=== PATIENT | male | born 1960 | race Caucasian/White ===

== ENCOUNTER 2024-03-19 22:33 | Emergency (ER) | payer OTHER ==
[~2024-03-19] VITALS: Ht 177.8 cm; Wt 124.6 kg
[2024-03-20] MEDS: HYDROcodone-ACET 10/325MG TAB PO ONE (01:01)
[2024-03-20] MEDS: KETOROLAC TROMETH 60MG/2ML VIAL IM ONE (01:01)
[2024-03-20 01:18] VITALS: BP 136/75; PULSE 78; RESP 16; TEMP 97.6; O2SAT 96
[2024-03-20] MEDS ORDERED: HYDR-4902 PO (01:33)
[2024-03-20] MEDS ORDERED: BACDST PO (01:33)
[2024-03-20] MEDS ORDERED: IBUP-1455 PO (01:33)
== END 2024-03-20 01:39 | disposition home or self-care (01) ==
LOC: ER 22:33
DX: N44.00 Torsion of testis, unspecified (principal); E66.01 Morbid (severe) obesity due to excess calories; Z68.39 Body mass index [BMI] 39.0-39.9, adult
CPT/HCPCS: 76870; 96372; 99285; J1885

== ENCOUNTER 2024-05-26 17:15 | Inpatient (IN) | payer OTHER ==
[~2024-05-26] VITALS: Ht 175.3 cm; Wt 113.7 kg
[~2024-05-26 17:15] MED LIST: BACDST PO; HYDR-4902 PO; IBUP-1455 PO
[2024-05-26 18:41] LABS: Basophils # (auto) 0.1 10 ^3/uL (0-0.2); Basophils % (auto) 1.5 % (0.0-2.0); Eosinophils # (auto) 0.2 10 ^3/uL (0-0.8); Eosinophils % (auto) 1.9 % (0.0-7.0); Hematocrit 45.3 % (41.0-53.0); Hemoglobin 15.5 g/dL (13.5-17.5); Lymphocytes # (auto) 1.7 10 ^3/uL (0.4-5.4); Lymphocytes % (auto) 20.3 % (10.0-50.0); Mean Corpuscular Hemoglobin 30.7 pg (28.0-32.0); Mean Corpuscular Hgb Conc. 34.1 g/dL (32.0-36.0); Mean Corpuscular Volume 89.9 fL (80.0-100.0); Monocytes # (auto) 0.7 10 ^3/uL (0-1.3); Neutrophils # (auto) 5.5 10 ^3/uL (1.6-8.6); Neutrophils % (auto) 67.3 % (37.0-80.0); Platelet Count (auto) 345 10^3/uL (140-450); Red Blood Cells 5.04 10^6/uL (4.5-5.90); Red Cell Distribution Width 14.3 % (11.8-14.3); White Blood Cell 8.2 10^3/uL (4.4-10.8)
[2024-05-26] MEDS: HYDROcodone-ACET 10/325MG TAB PO ONE (18:42)
--- NOTE | 2024-05-26 18:47 | DVH ---
ULTRASOUND OF SCROTUM AND CONTENTS. INDICATION: Bleeding, open wound.. COMPARISON: US TESTICULAR ULTRASOUND on DOS: 03/20/24 TECHNIQUE: Multiple real-time grayscale sonographic and color and duplex Doppler images of the scrotu m and its contents were obtained. FINDINGS: In the right scrotal area of the testicle there is a 4.4 x 2.4 x 3.1 cm complex heterogeneous fluid c ollection, possibly hematoma or abscess. The right testicle and right epididymis are not clearly delineated and may be obscured by abscess. The left testicle and left epididymis are within normal limits. The left testicle measures 3.8 x 2.1 x 2.0 cm and demonstrates normal blood flow. IMPRESSION: Complex heterogeneous fluid collection seen in the right scrotal area which measures up to 4.4 cm, po ssible hematoma or abscess.. The right testicle and right epididymis are not clearly delineated and may be obscured by complex flu id collection. The left testes is unremarkable.
[2024-05-26 19:04] LABS: Albumin 4.3 g/dL (3.2-4.8); Alkaline Phosphatase 112 U/L (46-116); Anion Gap 7 (5-15); Aspartate Aminotransferase < 8 U/L (13-40); BUN/Creatinine Ratio 10.5 (10.0-20.0); Blood Urea Nitrogen 12 mg/dL (9-23); Calcium 9.3 mg/dL (8.7-10.4); Carbon Dioxide 24 mmol/L (20-31); Chloride 102 mmol/L (98-107); Potassium 4.1 mmol/L (3.5-5.1); Sodium 133 mmol/L (136-145)
[2024-05-26 19:05] LABS: Bilirubin, Total 0.4 mg/dL (0.2-1.0); Total Protein 7.8 g/dL (5.7-8.2)
[2024-05-26 19:16] LABS: Alanine Aminotransferase < 9 U/L (7-40)
[2024-05-26 19:17] LABS: Glucose 473 mg/dL (74-106)
--- NOTE | 2024-05-26 19:21 | ED.PDOC ---
General HPI Comments Patient is a pleasant but morbidly obese 63-year-old male who I am familiar with due to prior visits who arrives today for continued complaints of right testicle swelling and pain. Patient was seen at this facility a while back and diagnosed with hydrocele of the right testicle. Patient states he followed up with his doctor in the evaluated him. Patient states the testicle started to improve and then approximately one week ago reversed and began swelling again. Patient states that today he had some abrasion on his that resulted in bleeding from the scrotum. Patient arrives wearing a diaper that is fluid and blood filled as well as an enlarged right testicle. No fever nausea or vomiting. Patient was mildly hypertensive on arrival. Chief Complaint: Testicle Pain Time Seen by MD: 17:33 Primary Care Provider: Dr. Mcnamara's Reviewed notes: Nurses Notes Allergies: Coded Allergies: NO KNOWN ALLERGIES (Unverified , 03/19/24) Home Meds Active Scripts Hydrocodone-Acetaminophen (Hydrocodone Bitartrate/AC 5-325 mg) 1 Tab Tab, 1 TAB PO Q6HP PRN, #15 TAB Prov:GUICHO COBURN PAC 03/20/24 Ibuprofen Micronized (Ibuprofen) 800 Mg Tab, 800 MG PO Q8HP PRN, #20 TAB Prov:GUICHO COBURN PAC 03/20/24 Sulfamethoxazole W/Trimethopri (Bactrim Ds Tablet) 1 Tab Tb, 1 TAB PO BID for 7 Days, #14 TAB Prov:GUICHO COBURN PAC 03/20/24 Information Source: Patient, Friend Mode of Arrival: Ambulatory Severity: Moderate Timing: Weeks Duration: Since onset Prehospital treatment: Treatment Onset: Spontaneous Symptoms: Other (Right testicle pain) History of: Other (Right hydrocele) Location male: R Scrotum Penile discharge: None Modifying factors: None associated signs and symptoms: Other (Scrotal tear.) Past Medical History PAST MEDICAL HISTORY: Denies Past Medical History (Other): Recent prolonged hydrocele event Surgical History: Denies all surgeries Family History Family History: Reviewed,noncontributory to illness, No family hx of Cancer, No family hx of DM, No family hx of Heart gamaliel, No family hx of HTN, No family hx ofKidney gamaliel, No family hx of Liver gamaliel, No family hx of Lung gamaliel, No family hx of Stroke Social History Smoker: Non-Smoker Alcohol: Denies ETOH Use Drugs: Denies Drug Use Lives In: Home Constitutional: denies: chills, diaphoresis, fatigue, fever, malaise, sweats, weakness, others EENTM: denies: blurred vision, double vision, ear bleeding, ear discharge, ear drainage, ear pain, ear ringing, eye pain, eye redness, hearing loss, mouth pain, mouth swelling, nasal discharge, nose bleeding, nose congestion, nose pain, photophobia, tearing, throat pain, throat swelling, voice changes, others Respiratory: denies: cough, hemoptysis, orthopnea, SOB at rest, shortness of breath, SOB with excertion, stridor, wheezing, others Cardiovascular: denies: chest pain, dizzy spells, diaphoresis, Dyspnea on exertion, edema, irregular heart beat, left arm pain, lightheadedness, palpitati ons, PND, syncope, others Gastrointestinal: denies: abdomen distended, abdominal pain, blood streaked bowels, constipated, diarrhea, dysphagia, difficulty swallowing, hematemesis, melena, nausea, poor appetite, poor fluid intake, rectal bleeding, rectal pain, vomiting, others Genitourinary: reports: testicle pain, testicle swelling, others (Scrotal trauma); denies: burning, dysuria, flank pain, frequency, hematuria, incontinence, penile discharge, penile sore, pain, urgency Neurological: denies: dizziness, fainting, headache, left sided numbness, left sided weakness, numbness, paresthesia, pre-existing deficit, right sided numbness, right sided weakness, seizure, speech problems, tingling, tremors, weakness, others Musculoskeletal: denies: back pain, gout, joint pain, joint swelling, muscle pain, muscle stiffness, neck pain, others Integumetry: denies: bruises, change in color, change in hair/nails, dryness, laceration, lesions, lumps, rash, wounds, others Allergic/Immunocompromised: denies: Difficulty Healing, Frequent Infections, Hives, Itching, others Hematologic/Lymphatic: denies: anemia, blood clots, easy bleeding, easy bruising, swollen glands, others Endocrine: denies: excessive hunger, excessive sweating, excessive thirst, excessive urination, flushing, intolerance to cold, intolerance to heat, unexplained weight gain, unexplained weight loss, others Psychiatric: denies: anxiety, bipolar disorder, depression, hopeless, panic disorder, schizophrenia, sleepless, suicidal, others Physical Exam General Appearance: Moderate Distress (Due to right-sided testicular pain and scrotal trauma.), Obese HEENT: Normal ENT Inspection, Pharynx Normal, TMs Normal Neck: Full Range of Motion, Non-Tender, Normal, Normal Inspection Respiratory: Chest Non-Tender, Lungs Clear, No Accessory Muscle Use, No Respiratory Distress, Normal Breath Sounds Cardiovascular: No Edema, No JVD, No Murmur, No Gallop, Normal Peripheral Pulses, Regular Rate/Rhythm Breast Exam: Deferred Gastrointestinal: No Organomegaly, Non Tender, No Pulsatile Mass, Normal Bowel Sounds, Soft Genitalia: Other (Patient has an exquisitely tender enlarged right testicle. Patient reveals a tear to the anterior aspect of the scrotum that is expressing serosanguineous fluid. Cremaster reflexes present.) Pelvic: Deferred Rectal: Deferred Extremities: No calf tenderness, Normal capillary refill, Normal inspection, Normal range of motion, Non-tender, No pedal edema Neurologic: Alert, electric power superintendent II-XII nml as Tested, No Motor Deficits, Normal Affect, Normal Mood, No Sensory Deficits Cerebellar Function: Normal Reflexes: Normal Skin: Dry, Normal Color, Warm Lymphatic: No Adenopathy Was a procedure done? Was a procedure done?: No Differential Diagnosis Kidney stone (Female): N/A Penile/Scrotal: Other (Testicular hydrocele, epididymitis, testicular torsion, scrotal trauma, scrotal mass) X-Ray, Labs, Meds, VS Vital Signs Date Time Temp Pulse Resp B/P (MAP) Pulse Ox O2 Delivery O2 Flow Rate FiO2 05/26/24 20:23 98.5 74 11 117/53 (74) 96 98.5 05/26/24 20:23 74 11 96 Room Air* 0 21 05/26/24 19:43 16 96 Room Air* 0 21 05/26/24 19:38 97.9 89 16 156/91 (112) 95 97.9 05/26/24 17:36 98.7 90 16 151/90 (110) 98 Lab Test 05/26/24 20:15 05/26/24 18:29 Range/Units POC Glucose 525 *H 70-106 mg/dl White Blood Count 8.2 4.4-10.8 10^3/uL Red Blood Count 5.04 4.5-5.90 10^6/uL Hemoglobin 15.5 13.5-17.5 g/dL Hematocrit 45.3 41.0-53.0 % Mean Corpuscular Volume 89.9 80.0-100.0 fL Mean Corpuscular Hemoglobin 30.7 28.0-32.0 pg Mean Corpuscular Hemoglobin Concent 34.1 32.0-36.0 g/dL Red Cell Distribution Width 14.3 11.8-14.3 % Platelet Count 345 140-450 10^3/uL Mean Platelet Volume 8.7 6.9-10.8 fL Neutrophils (%) (Auto) 67.3 37.0-80.0 % Lymphocytes (%) (Auto) 20.3 10.0-50.0 % Monocytes (%) (Auto) 9.0 0.0-12.0 % Eosinophils (%) (Auto) 1.9 0.0-7.0 % Basophils (%) (Auto) 1.5 0.0-2.0 % Neutrophils # (Auto) 5.5 1.6-8.6 10 ^3/uL Lymphocytes # (Auto) 1.7 0.4-5.4 10 ^3/uL Monocytes # (Auto) 0.7 0-1.3 10 ^3/uL Eosinophils # (Auto) 0.2 0-0.8 10 ^3/uL Basophils # (Auto) 0.1 0-0.2 10 ^3/uL Nucleated Red Blood Cells 0.0 % Sodium Level 133 L 136-145 mmol/L Potassium Level 4.1 3.5-5.1 mmol/L Chloride Level 102 98-107 mmol/L Carbon Dioxide Level 24 20-31 mmol/L Anion Gap 7 5-15 Blood Urea Nitrogen 12 9-23 mg/dL Creatinine 1.14 0.700-1.30 mg/dL Glomerular Filtration Rate Calc 72 >90 mL/min BUN/Creatinine Ratio 10.5 10.0-20.0 Serum Glucose 473 *H 74-106 mg/dL Lactic Acid Level 1.4 0.4-2.0 mmol/L Calcium Level 9.3 8.7-10.4 mg/dL Total Bilirubin 0.4 0.2-1.0 mg/dL Aspartate Amino Transferase (AST) < 8 L 13-40 U/L Alanine Aminotransferase (ALT) < 9 7-40 U/L Alkaline Phosphatase 112 46-116 U/L Total Protein 7.8 5.7-8.2 g/dL Albumin 4.3 3.2-4.8 g/dL Current Medications Medications (Trade) Dose Ordered Sig/Fabian Route Start Time Stop Time Status Last Admin Acetaminophen/ Hydrocodone Bitart (Homer 10/325MG Tab) 1 tab ONCE ONCE PO 05/26/24 18:00 05/26/24 18:01 DC 05/26/24 18:42 Ceftriaxone Sodium 50 ml @ 100 mls/hr ONCE ONCE IV 05/26/24 19:30 05/26/24 19:59 DC 05/26/24 20:01 Sodium Chloride 1,000 ml @ 1,000 mls/hr Q1H ONCE IV 05/26/24 19:30 05/26/24 20:29 DC 05/26/24 20:01 Insulin Human Lispro (HumaLOG) 10 units ONCE ONCE SC 05/26/24 19:30 05/26/24 19:31 DC 05/26/24 20:16 X-Ray, Labs, Meds, VS Comment Laboratories studies were only remarkable for an elevated glucose. Was pending at time of this note. Ultrasound of scrotum revealed a large hydrocele of the right testicle as well as a abscess or mass noted. To the extended time of this hydrocele as well as an abscess or mass formation, patient will be admitted for surgical consultation to assess possible intervention. Patient's diabetes will be managed well with the facility. Prophylactic antibiotics have been started. Patient was a [facility] patient and therefore, I discussed patient presentation and imaging and laboratory results with Dr. Urbano. She agreed to accept the patient as an admit. Time of 1ST Reevaluation: 19:20 Reevaluation 1ST: Improved Consultation: PCP Patient Education/Counseling: Diagnosis, Treatment Family Education/Counseling: Diagnosis, Treatment Departure 1 Departure Time of Disposition: 19:20 Impression: Primary Impression: Hydrocele of testis Additional Impressions: Scrotal abscess Hyperglycemia due to diabetes mellitus Disposition: ADMITTED INPATIENT Condition: Stable Discharged With: Self, Friend Critical Care Note Critical Care Time?: No Stability Stability form required: No Heart Score Heart Score: Heart Score Response (Comments) Value History N/A 0 EKG N/A 0 Age N/A 0 Risk Factors N/A 0 Troponin N/A 0 Total 0 GUICHO COBURN PAC May 26, 2024 19:21
[2024-05-26 19:43] VITALS: RESP 16; O2SAT 96
[2024-05-26] MEDS: cefTRIAXone 1GM/50ML D5W 50 ML IV ONE (20:01)
[2024-05-26] MEDS: SODIUM CHLORIDE 0.9% 1,000 ML IV ONE ×2 (20:01→22:51)
[2024-05-26] MEDS: INSULIN LISPRO (HUMAN) 100 UNITS/ML ML SC ONE (20:16)
[2024-05-26 20:23] VITALS: PULSE 74; RESP 11; O2SAT 96
[2024-05-26] MEDS ORDERED: MORPHINE SULFATE INJ 2 MG/ml SYRG IV PRN (21:45)
[2024-05-26] MEDS ORDERED: NITROGLYCERIN 0.4 MG SL TAB SL PRN (21:45)
[2024-05-26] MEDS ORDERED: DEXTROSE (50%) 50ML SYRG IV PRN (21:45)
[2024-05-26] MEDS ORDERED: ONDANSETRON HCL 4 MG/2 ML VIAL IV PRN (22:00)
[2024-05-26 22:31] LABS: Basophils # (auto) 0.1 10 ^3/uL (0-0.2); Basophils % (auto) 0.7 % (0.0-2.0); Eosinophils # (auto) 0.2 10 ^3/uL (0-0.8); Eosinophils % (auto) 2.2 % (0.0-7.0); Hematocrit 41.6 % (41.0-53.0); Lymphocytes # (auto) 1.6 10 ^3/uL (0.4-5.4); Lymphocytes % (auto) 19.6 % (10.0-50.0); Mean Corpuscular Hemoglobin 30.6 pg (28.0-32.0); Mean Corpuscular Hgb Conc. 33.6 g/dL (32.0-36.0); Mean Corpuscular Volume 90.8 fL (80.0-100.0); Monocytes # (auto) 0.9 10 ^3/uL (0-1.3); Monocytes % (auto) 11.6 % (0.0-12.0); Neutrophils # (auto) 5.3 10 ^3/uL (1.6-8.6); Neutrophils % (auto) 65.9 % (37.0-80.0); Platelet Count (auto) 295 10^3/uL (140-450); Red Blood Cells 4.58 10^6/uL (4.5-5.90); Red Cell Distribution Width 13.9 % (11.8-14.3); White Blood Cell 8.1 10^3/uL (4.4-10.8)
[2024-05-26 22:45] LABS: INR 1.02 (0.9-1.15); Prothrombin Time 10.8 sec (9.3-11.8)
[2024-05-26] MEDS: ACCU-CHEK COMFORT CURVE STRIP VI SCH (22:45)
[2024-05-26] MEDS: InsuLIN REG 1unit/0.01ml Soln (100units/ml) SC SCH (22:49)
[2024-05-27] VITALS (13 sets, daily range): BP systolic 130–146; BP diastolic 70–87; PULSE 65–89; RESP 17–20; TEMP 98–98.9; O2SAT 92–98
[2024-05-27 06:19] LABS: Alkaline Phosphatase 75 U/L (46-116); Anion Gap 7 (5-15); Blood Urea Nitrogen 10 mg/dL (9-23); Calcium 8.5 mg/dL (8.7-10.4); Carbon Dioxide 23 mmol/L (20-31); Chloride 109 mmol/L (98-107); Potassium 3.6 mmol/L (3.5-5.1); Sodium 139 mmol/L (136-145)
--- NOTE | 2024-05-27 06:19 | DVHHP2 ---
Admitting Diagnosis: scrotal hematoma vs abscess History of Present Illness HPI 63 y.o. male with morbid obesity, diabetes and h/o right testicle hydrocele (03/20/2024) arrived to the ED complaining of right testicular swelling and pain. Patient informed that the previous episode of hydrocele initially improved but a week ago the right testicle started swelling again. Patient states that today he had some scrotal abrasion with bleeding from the scrotum. Patient arrived with a diaper filled with serosanguineous fluid. Home Meds Active Scripts Hydrocodone-Acetaminophen (Hydrocodone Bitartrate/AC 5-325 mg) 1 Tab Tab, 1 TAB PO Q6HP PRN, #15 TAB Prov:GUICHO COBURN PAC 03/20/24 Ibuprofen Micronized (Ibuprofen) 800 Mg Tab, 800 MG PO Q8HP PRN, #20 TAB Prov:GUICHO COBURN PAC 03/20/24 Sulfamethoxazole W/Trimethopri (Bactrim Ds Tablet) 1 Tab Tb, 1 TAB PO BID for 7 Days, #14 TAB Prov:GUICHO COBURN PAC 03/20/24 Past Medical History Cardiac: HTN Renal/: Other (right hydrocele) Endocrine: NIDDM Patient Family History: Patient reports no known family medical history. Review of Systems Genitourinary: Pain, Other (scrotal swelling and pain) H&P Exam Vital Signs Vital Signs Date Time Temp Pulse Resp B/P (MAP) Pulse Ox O2 Delivery O2 Flow Rate FiO2 05/27/24 05:19 98.0 69 19 130/85 (100) 98 98.0 05/27/24 04:32 Room Air* 0 21 General Appeara: Obese Head Exam: Normal inspection, Active bleeding Neck Exam: Normal inspection Eye Exam: bilateral eye PERRL, bilateral eye EOMI Pulmonary/Respiratory: Lungs clear Cardiovascular/Chest: Regular rate Abdominal Exam: Normal bowel sounds Male Genital Exam: Scrotum tenderness -L, Testicular tenderness - R Neuro/Mental St: Alert, Oriented Labs/Xrays Labs Test 05/27/24 04:45 05/26/24 22:45 05/26/24 22:04 05/26/24 18:29 Range/Units POC Glucose 354 H 70-106 mg/dl White Blood Count 8.1 4.4-10.8 10^3/uL Red Blood Count 4.58 4.5-5.90 10^6/uL Hemoglobin 14.0 13.5-17.5 g/dL Hematocrit 41.6 41.0-53.0 % Mean Corpuscular Volume 90.8 80.0-100.0 fL Mean Corpuscular Hemoglobin 30.6 28.0-32.0 pg Mean Corpuscular Hemoglobin Concent 33.6 32.0-36.0 g/dL Red Cell Distribution Width 13.9 11.8-14.3 % Platelet Count 295 140-450 10^3/uL Mean Platelet Volume 8.5 6.9-10.8 fL Neutrophils (%) (Auto) 65.9 37.0-80.0 % Lymphocytes (%) (Auto) 19.6 10.0-50.0 % Monocytes (%) (Auto) 11.6 0.0-12.0 % Eosinophils (%) (Auto) 2.2 0.0-7.0 % Basophils (%) (Auto) 0.7 0.0-2.0 % Neutrophils # (Auto) 5.3 1.6-8.6 10 ^3/uL Lymphocytes # (Auto) 1.6 0.4-5.4 10 ^3/uL Monocytes # (Auto) 0.9 0-1.3 10 ^3/uL Eosinophils # (Auto) 0.2 0-0.8 10 ^3/uL Basophils # (Auto) 0.1 0-0.2 10 ^3/uL Nucleated Red Blood Cells 0.0 % Prothrombin Time 10.8 9.3-11.8 sec Prothrombin Time INR 1.02 0.9-1.15 Lactic Acid Level 1.4 0.4-2.0 mmol/L Assessment/Plan Problem List: (1) Scrotal hematoma (2) Scrotal abscess (3) Hyperglycemia due to diabetes mellitus Plan Rocephin, Insulin, Urology consult Plan discussed with: Patient JESSICA GARCIA MD May 27, 2024 06:19
[2024-05-27 06:20] LABS: Albumin 3.4 g/dL (3.2-4.8)
[2024-05-27 06:21] LABS: Aspartate Aminotransferase < 8 U/L (13-40); Bilirubin, Total 0.3 mg/dL (0.2-1.0); Total Protein 6.3 g/dL (5.7-8.2)
[2024-05-27] MEDS: InsuLIN REG 1unit/0.01ml Soln (100units/ml) SC SCH (06:22)
[2024-05-27 06:33] LABS: Alanine Aminotransferase < 9 U/L (7-40); Glucose 157 mg/dL (74-106)
[2024-05-27] MEDS ORDERED: CEPH250C PO (09:33)
[2024-05-27] MEDS: cefTRIAXone 1GM/50ML D5W 50 ML IV SCH (10:18)
[2024-05-27] MEDS: HYDROcodone-ACET 10/325MG TAB PO PRN (10:39)
--- NOTE | 2024-05-27 12:20 | DVHINCON2 ---
Date of service: May 26, 2024 Referring Physician Hospitalist Reason for Consultation Scrotal Hematoma History of Present Illness 63 y.o. male with morbid obesity, diabetes and h/o right testicle hydrocele (03/20/2024) arrived to the ED complaining of right testicular swelling and pain. Patient informed that the previous episode of hydrocele initially improved but a week ago the right testicle started swelling again. Patient states that today he had some scrotal abrasion with bleeding from the scrotum. Patient arrived with a diaper filled with serosanguineous fluid. Family History: Patient reports no known family medical history. Allergies: Coded Allergies: NO KNOWN ALLERGIES (Unverified , 03/19/24) Home Meds Active Scripts Cephalexin (KEFLEX CAPSULE) 250 Mg Cp, 500 MG PO TID for 10 Days, #30 CAP Prov:SURI STARKEY MD 05/27/24 Hydrocodone-Acetaminophen (Hydrocodone Bitartrate/AC 5-325 mg) 1 Tab Tab, 1 TAB PO Q6HP PRN, #15 TAB Prov:GUICHO OCBURN PAC 03/20/24 Ibuprofen Micronized (Ibuprofen) 800 Mg Tab, 800 MG PO Q8HP PRN, #20 TAB Prov:GUICHO COBURN PAC 03/20/24 Sulfamethoxazole W/Trimethopri (Bactrim Ds Tablet) 1 Tab Tb, 1 TAB PO BID for 7 Days, #14 TAB Prov:GUICHO COBURN PAC 03/20/24 Current Medications Current Medications Medications (Trade) Dose Ordered Sig/Fabian Route PRN Reason Start Time Stop Time Status Last Admin Nitroglycerin (Ntrostat Sublingual) 0.4 mg Q5MINP PRN SL FOR CHEST PAIN 05/26/24 21:45 Morphine Sulfate 2 mg Q30M PRN IV FOR CHEST PAIN 05/26/24 21:45 Ceftriaxone Sodium 50 ml @ 100 mls/hr DAILY IV 05/27/24 10:00 05/27/24 10:18 Diagnostic Test (Pha) (Accu-Chek Comfort Curve T) 1 strip ACHS 05/26/24 22:00 05/27/24 10:42 Insulin Human Regular (InsuLIN R) HS SC 05/26/24 22:00 05/26/24 22:49 Insulin Human Regular (InsuLIN R) AC SC 05/27/24 07:00 05/27/24 06:22 Dextrose 50 ml UD PRN IV Blood Sugar LESS THAN 60 05/26/24 21:45 Ondansetron HCl (Zofran) 4 mg Q6HPRN PRN IV NAUSEA / VOMITING 05/26/24 22:00 Morphine Sulfate 1 mg Q4HPRN PRN IV SEVERE PAIN (7-10 PAIN SCALE) 05/26/24 22:00 Acetaminophen/ Hydrocodone Bitart (Bisbee 10/325MG Tab) 1 tab Q6HP PRN PO MODERATE PAIN (4-6 PAIN SCALE) 05/27/24 10:30 05/27/24 10:39 Vital Signs Vital Signs Date Time Temp Pulse Resp B/P (MAP) Pulse Ox O2 Delivery O2 Flow Rate FiO2 05/27/24 08:33 98.1 67 19 142/76 (98) 95 98.1 05/27/24 08:00 Room Air* 0 21 Physical Exam General Appeara: Obese Head Exam: Normal inspection, Active bleeding Neck Exam: Normal inspection Eye Exam: bilateral eye PERRL, bilateral eye EOMI Pulmonary/Respiratory: Lungs clear Cardiovascular/Chest: Regular rate Abdominal Exam: Normal bowel sounds Male Genital Exam: Scrotum tenderness -L, Testicular tenderness - R Neuro/Mental St: Alert, Oriented Labs/Diagnostic Data Labs Test 05/27/24 10:41 05/27/24 10:11 05/27/24 04:45 05/26/24 22:04 Range/Units POC Glucose 172 H 70-106 mg/dl Sodium Level 139 # 136-145 mmol/L Potassium Level 3.6 3.5-5.1 mmol/L Chloride Level 109 H 98-107 mmol/L Carbon Dioxide Level 23 20-31 mmol/L Anion Gap 7 5-15 Blood Urea Nitrogen 10 9-23 mg/dL Creatinine 0.83 0.700-1.30 mg/dL Glomerular Filtration Rate Calc 98 >90 mL/min BUN/Creatinine Ratio 12.0 10.0-20.0 Serum Glucose 157 #H 74-106 mg/dL Calcium Level 8.5 L 8.7-10.4 mg/dL Total Bilirubin 0.3 0.2-1.0 mg/dL Aspartate Amino Transferase (AST) < 8 L 13-40 U/L Alanine Aminotransferase (ALT) < 9 7-40 U/L Alkaline Phosphatase 75 46-116 U/L Total Protein 6.3 5.7-8.2 g/dL Albumin 3.4 3.2-4.8 g/dL White Blood Count 8.1 4.4-10.8 10^3/uL Red Blood Count 4.58 4.5-5.90 10^6/uL Hemoglobin 14.0 13.5-17.5 g/dL Hematocrit 41.6 41.0-53.0 % Mean Corpuscular Volume 90.8 80.0-100.0 fL Mean Corpuscular Hemoglobin 30.6 28.0-32.0 pg Mean Corpuscular Hemoglobin Concent 33.6 32.0-36.0 g/dL Red Cell Distribution Width 13.9 11.8-14.3 % Platelet Count 295 140-450 10^3/uL Mean Platelet Volume 8.5 6.9-10.8 fL Neutrophils (%) (Auto) 65.9 37.0-80.0 % Lymphocytes (%) (Auto) 19.6 10.0-50.0 % Monocytes (%) (Auto) 11.6 0.0-12.0 % Eosinophils (%) (Auto) 2.2 0.0-7.0 % Basophils (%) (Auto) 0.7 0.0-2.0 % Neutrophils # (Auto) 5.3 1.6-8.6 10 ^3/uL Lymphocytes # (Auto) 1.6 0.4-5.4 10 ^3/uL Monocytes # (Auto) 0.9 0-1.3 10 ^3/uL Eosinophils # (Auto) 0.2 0-0.8 10 ^3/uL Basophils # (Auto) 0.1 0-0.2 10 ^3/uL Nucleated Red Blood Cells 0.0 % Prothrombin Time 10.8 9.3-11.8 sec Prothrombin Time INR 1.02 0.9-1.15 Test 05/26/24 18:29 Range/Units Lactic Acid Level 1.4 0.4-2.0 mmol/L ULTRASOUND OF SCROTUM AND CONTENTS. INDICATION: Bleeding, open wound.. COMPARISON: US TESTICULAR ULTRASOUND on DOS: 03/20/24 TECHNIQUE: Multiple real-time grayscale sonographic and color and duplex Doppler images of the scrotum and its contents were obtained. FINDINGS: In the right scrotal area of the testicle there is a 4.4 x 2.4 x 3.1 cm complex heterogeneous fluid collection, possibly hematoma or abscess. The right testicle and right epididymis are not clearly delineated and may be obscured by abscess. The left testicle and left epididymis are within normal limits. The left testicle measures 3.8 x 2.1 x 2.0 cm and demonstrates normal blood flow. IMPRESSION: Complex heterogeneous fluid collection seen in the right scrotal area which measures up to 4.4 cm, possible hematoma or abscess.. The right testicle and right epididymis are not clearly delineated and may be obscured by complex fluid collection. The left testes is unremarkable. Assessment Scrotal Abscess Plan/Recommendation For I&D SINDI. Plan discussed with: Patient WENDY SWEENEY MD May 27, 2024 12:20
--- NOTE | 2024-05-27 13:24 | DVHOP2 ---
Operative Report - 2 Report Details Date: 05/27/24 Preop Diagnosis: Infected Scrotal Hematoma/Abscess Postop Diagnosis: Infected Scrotal Hematoma/Abscess Surgeon: Wendy Sweeney Anesthesiologist: KEIKO Anesthesia: General Consent: The patient was informed of the risks and benefits of the procedure. These include but are not limited to complications of anesthesia, postoperative infection, incomplete relief of symptoms, recurrence of symptoms, damage to blood vessels, nerves and tendons, deep venous thrombosis, pulmonary embolism and possible need for repeat surgery in the future. Name of Procedure Performed Incision and Drainage Procedure Details Procedure Details: see Op report Condition Good Disposition Acute Care Facility WENDY SWEENEY MD May 27, 2024 13:24
[2024-05-27] MEDS ORDERED: GLYCOPYRROLATE 0.2 MG/ML 1ML VIAL ONE (13:36)
[2024-05-27] MEDS ORDERED: PROPOFOL 10 MG/ML 20 ML IV ONE (13:36)
[2024-05-27] MEDS ORDERED: DexAMETHasone SOD PHOS 10MG/1ML VIAL INJ ONE (13:38)
[2024-05-27] MEDS ORDERED: LIDOCAINE 2% (LOCAL ANESTH.) PF 5ml SDV ONE (13:38)
[2024-05-27] MEDS ORDERED: ONDANSETRON HCL 4 MG/2 ML VIAL ONE (13:38)
[2024-05-27] MEDS ORDERED: KETAMINE 50mg/ML 1ml syringe ONE (13:38)
[2024-05-27] MEDS ORDERED: KETOROLAC TROMETH 30 MG/ML 1ML VIAL ONE (13:38)
[2024-05-27] MEDS ORDERED: fentaNYL CITRATE 100 MCG/2 ML VL ONE (13:39)
[2024-05-27] MEDS ORDERED: ePHEDrine SULFATE 50 MG/ML AMP IV PRN (14:30)
[2024-05-27] MEDS ORDERED: NALOXONE HCL 0.4 MG/ML VIAL IV PRN (14:30)
[2024-05-27] MEDS ORDERED: HYDROmorphone HCL 2 MG/ML VL/or syr IV PRN (14:30)
[2024-05-27] MEDS ORDERED: fentaNYL CITRATE 100 MCG/2 ML VL IV PRN (14:30)
[2024-05-27] MEDS ORDERED: hydrALAZINE HCL 20 MG/ML VL IV PRN (14:30)
[2024-05-27] MEDS ORDERED: FLUMAZENIL 0.1 MG/ML INJ 10ML MDV IV PRN (14:30)
[2024-05-27] MEDS ORDERED: ONDANSETRON HCL 4 MG/2 ML VIAL IV PRN (14:30)
[2024-05-28] VITALS (7 sets, daily range): BP systolic 111–146; BP diastolic 65–81; PULSE 68–79; RESP 16–20; TEMP 97–98.2; O2SAT 92–96
[2024-05-28 07:03] LABS: Basophils # (auto) 0 10 ^3/uL (0-0.2); Basophils % (auto) 0.2 % (0.0-2.0); Eosinophils # (auto) 0 10 ^3/uL (0-0.8); Hematocrit 42.4 % (41.0-53.0); Hemoglobin 14.3 g/dL (13.5-17.5); Lymphocytes # (auto) 1.3 10 ^3/uL (0.4-5.4); Lymphocytes % (auto) 11.9 % (10.0-50.0); Mean Corpuscular Hemoglobin 30.5 pg (28.0-32.0); Mean Corpuscular Hgb Conc. 33.8 g/dL (32.0-36.0); Mean Corpuscular Volume 90.2 fL (80.0-100.0); Monocytes # (auto) 0.8 10 ^3/uL (0-1.3); Monocytes % (auto) 7.1 % (0.0-12.0); Neutrophils # (auto) 9.1 10 ^3/uL (1.6-8.6); Neutrophils % (auto) 80.8 % (37.0-80.0); Platelet Count (auto) 354 10^3/uL (140-450); Red Blood Cells 4.69 10^6/uL (4.5-5.90); Red Cell Distribution Width 14.2 % (11.8-14.3); White Blood Cell 11.3 10^3/uL (4.4-10.8)
[2024-05-28 07:09] LABS: Calcium 8.9 mg/dL (8.7-10.4); Chloride 107 mmol/L (98-107); Potassium 4.5 mmol/L (3.5-5.1); Sodium 136 mmol/L (136-145)
[2024-05-28 07:10] LABS: Anion Gap 9 (5-15); Carbon Dioxide 20 mmol/L (20-31)
[2024-05-28 07:15] LABS: BUN/Creatinine Ratio 14.1 (10.0-20.0); Blood Urea Nitrogen 12 mg/dL (9-23); Glucose 241 mg/dL (74-106)
--- NOTE | 2024-05-28 08:07 | DVHDS2 ---
New Physician D'charge PN Admitting Diagnosis Admitting Diagnosis scrotal swelling/pain Discharge Diagnosis Infected Scrotal Abscess s/p I&D with removal of contents/scrotum Operations or Procedures I&D scrotal abscess Reason(s) For Hospitalization Surgery Hospital Course 63 M comes to ER for swelling of R testicle and pain. His U/S revealed testicular abscess and he was admitted and seen by urology. He was taken immediated to the OR for incision and drainage if scrotal/testicular abscess. He was maintained in IV Abx here in the hospital and has been cleared by urology this AM for dc home. He will follow up outpt with urology and PO Abx have been sent to his pharmacy on file. [facility] to arrange for all outpt follow up. Treatment Plan Discharge Condition of Discharge Good Disposition Home Discharge Instructions Diet: Cardiac 2g Na,low cholest Activity: No Restrictions, As Tolerated Activity comment: elevate and apply ice to scrotum Medications: see med sheet Follow Up Care Follow Up/Referral: pcp urology Discharge Statement: "Patient was advised to return to the ER or call 911 if any headaches, dizziness, shortness of breath, chest pain, abdominal pain, bleeding, fevers, or worsening of medical condition. Patient was counseled about treatment plan, medications, possible side effects, patientverbalized understanding. All questions were answered to the best of my ability. This discharge took greater then 30 minutes in planning, reviewing documentation, counseling the patient, and discussing with other team members." SURI STARKEY MD May 28, 2024 08:07
[2024-05-28 09:25] LABS: Hepatitis B Surface Antibody Negative (Negative)
[2024-05-28 09:36] LABS: Hepatitis B Surface Antigen Negative (Negative)
[2024-05-28 09:58] LABS: Hepatitis C Antibody Negative (Negative)
[2024-05-28] MEDS: MORPHINE SULFATE INJ 2 MG/ml SYRG IV PRN (12:20)
--- NOTE | 2024-05-28 15:33 | DVHPN2 ---
Progress Note - Dictate Date Seen: May 28, 2024 Medical Necessity Reason Pt with a Central, PICC or Fol: Yes The following are medically ne: Payton Catheter Medical Necessity Reason open wound to scrotum Subjective doing well vital signs Vital Sign Date Time Temp Pulse Resp B/P (MAP) Pulse Ox O2 Delivery O2 Flow Rate FiO2 05/28/24 13:00 98.0 68 18 146/81 (102) 92 98.0 05/28/24 08:30 Room Air* 0 21 Total Intake and Output 05/27/24 05/27/24 05/28/24 15:00 23:00 07:00 Intake Total 50 ml 0 ml Balance 50 ml 0 ml medications Current Medications Medications Dose Ordered Sig/Fabian Route Start Time Stop Time Status Last Admin Dose Admin Nitroglycerin 0.4 mg Q5MINP PRN SL 05/26/24 21:45 Morphine Sulfate 2 mg Q30M PRN IV 05/26/24 21:45 Ceftriaxone Sodium 50 ml @ 100 mls/hr DAILY IV 05/27/24 10:00 05/28/24 09:22 100 MLS/HR Diagnostic Test (Pha) 1 strip ACHS 05/26/24 22:00 05/28/24 11:44 1 STRIP Insulin Human Regular HS SC 05/26/24 22:00 05/27/24 21:27 10 UNITS Insulin Human Regular AC SC 05/27/24 07:00 05/28/24 12:04 6 UNITS Dextrose 50 ml UD PRN IV 05/26/24 21:45 Ondansetron HCl 4 mg Q6HPRN PRN IV 05/26/24 22:00 Morphine Sulfate 1 mg Q4HPRN PRN IV 05/26/24 22:00 05/28/24 12:20 1 MG Acetaminophen/ Hydrocodone Bitart 1 tab Q6HP PRN PO 05/27/24 10:30 05/27/24 14:53 1 TAB objective scrotal dressing packed serosanguinous output laboratory and microbiology Laboratory Tests 05/28/24 05:37 Test 05/28/24 05:37 Range/Units Serum Glucose 241 H 74-106 mg/dL Assessment/Plan daily wet to dry dressing changes f/u 1 week for wound check Problems(with codes): (1) Scrotal abscess (2) Scrotal hematoma (3) Status post orchiectomy Prognosis good Plan discussed with: Patient, Other Total Time (mins): 22 SAEED WASSERMAN NP May 28, 2024 15:32
[2024-05-28] MEDS: oxyCODONE HCL 5MG TAB PO ONE (22:32)
[2024-05-28 23:31] LABS: Urine Bacteria None Seen /hpf (None Seen)
[2024-05-28 23:54] LABS: Urine Blood 2+ /uL (Negative); Urine Clarity Clear (Clear); Urine Color Light-Yellow (Yellow); Urine Protein, UAD 3+ (Negative); Urine Specific Gravity 1.035 (1.001-1.035); Urine Urobilinogen Normal (Negative); Urine WBC 10 /hpf (0 - 3); Urine pH 6.5 (5.0-9.0)
[2024-05-29 01:00] VITALS: BP 139/79; PULSE 68; RESP 18; TEMP 98.4; O2SAT 95
[2024-05-29 05:00] VITALS: BP 139/80; PULSE 67; RESP 18; TEMP 98.2; O2SAT 93
[2024-05-29 06:02] LABS: Basophils # (auto) 0 10 ^3/uL (0-0.2); Basophils % (auto) 0.5 % (0.0-2.0); Eosinophils # (auto) 0.1 10 ^3/uL (0-0.8); Eosinophils % (auto) 1.4 % (0.0-7.0); Hemoglobin 14.4 g/dL (13.5-17.5); Lymphocytes # (auto) 2.1 10 ^3/uL (0.4-5.4); Lymphocytes % (auto) 23.8 % (10.0-50.0); Mean Corpuscular Hemoglobin 30.5 pg (28.0-32.0); Mean Corpuscular Hgb Conc. 34.3 g/dL (32.0-36.0); Mean Corpuscular Volume 88.8 fL (80.0-100.0); Monocytes # (auto) 1.1 10 ^3/uL (0-1.3); Neutrophils # (auto) 5.5 10 ^3/uL (1.6-8.6); Neutrophils % (auto) 62.3 % (37.0-80.0); Nucleated Red Blood Cells % 0.1 %; Platelet Count (auto) 336 10^3/uL (140-450); Red Blood Cells 4.73 10^6/uL (4.5-5.90); Red Cell Distribution Width 13.8 % (11.8-14.3); White Blood Cell 8.8 10^3/uL (4.4-10.8)
[2024-05-29 06:18] LABS: Anion Gap 8 (5-15); Carbon Dioxide 23 mmol/L (20-31); Chloride 106 mmol/L (98-107); Potassium 3.7 mmol/L (3.5-5.1); Sodium 137 mmol/L (136-145)
[2024-05-29 06:19] LABS: Calcium 8.4 mg/dL (8.7-10.4)
[2024-05-29 06:24] LABS: BUN/Creatinine Ratio 14.9 (10.0-20.0); Blood Urea Nitrogen 11 mg/dL (9-23); Glucose 236 mg/dL (74-106)
[2024-05-29 08:00] VITALS: PULSE 65; RESP 16
[2024-05-29 09:00] VITALS: BP 148/81; PULSE 65; RESP 16; TEMP 97.9; O2SAT 90
[2024-05-29] MEDS ORDERED: HYDR-4798 PO (10:15)
[2024-05-29] MEDS ORDERED: NALO4SPR2 (10:17)
[2024-05-29 12:43] VITALS: BP 135/86; PULSE 79; RESP 17; TEMP 98.2; O2SAT 97
[2024-05-29 16:46] VITALS: BP 149/86; PULSE 72; RESP 18; TEMP 98.3; O2SAT 94
== END 2024-05-29 16:30 | disposition home health service (06) | DRG 712 ==
LOC: ER 17:15 → OVERFLOW 21:52 → WEST WING 05-27 01:00
PROVIDERS: ADMIT Internal Medicine; ATTEND Student in an Organized Health Care Education/Training Program
PROC: 0VB90ZZ Excision of Right Testis, Open Approach (ICD-10-PCS; 2024-05-27)
PROC: 0V950ZZ Drainage of Scrotum, Open Approach (ICD-10-PCS; principal; 2024-05-27 13:30)
DX: N45.4 Abscess of epididymis or testis (principal); E11.65 Type 2 diabetes mellitus with hyperglycemia; I10 Essential (primary) hypertension; E66.01 Morbid (severe) obesity due to excess calories; N43.2 Other hydrocele; S30.22XA Contusion of scrotum and testes, initial encounter; Z79.84 Long term (current) use of oral hypoglycemic drugs; Z79.899 Other long term (current) drug therapy; X58.XXXA Exposure to other specified factors, initial encounter; Y93.89 Activity, other specified; Y92.89 Other specified places as the place of occurrence of the external cause; Y99.8 Other external cause status
CPT/HCPCS: 36415; 76870; 80048; 80053; 81001; 82962; 83605; 85025; 85610; 86706; 86803; 87070; 87075; 87077; 87081; 87186; 87205; 87340; 96365; 96372; G0378; J1100; J1815; J1885; J2003; J2405; J2704